=== PATIENT | female | born 1960 | race Caucasian/White ===

== ENCOUNTER 2016-10-13 10:49 | Outpatient (CLI) | payer BC ==
--- NOTE | 2016-10-13 13:07 | RAD ---
TWO VIEWS OF THE CHEST 10/13/2016 HISTORY: Preoperative patient. Assess lungs. COMPARISON: None. FINDINGS: No pneumothorax, pleural fluid, focal consolidation, or alveolar edema. Heart and mediastinal conto urs are unremarkable. No acute osseous abnormality. IMPRESSION: No acute findings. POS: [facility]
== END 2016-10-13 10:50 | disposition home or self-care (01) ==
LOC: SCSRAD 10:49
PROVIDERS: ATTEND Family Medicine
DX: Z01.818 Encounter for other preprocedural examination (principal)
CPT/HCPCS: 71020